=== PATIENT | male | born 1930 | race Hispanic/Latino ===

== ENCOUNTER 2021-05-29 11:37 | Inpatient (IN) | payer MEDICARE ==
[~2021-05-29] VITALS: Ht 162.6 cm; Wt 60.3 kg
[2021-05-29] MEDS ORDERED: SODIUM CHLORIDE 0.9% 1000ML 1,000 ML IV STA ×2 (12:05→13:46)
[2021-05-29] MEDS ORDERED: CALCIUM GLUCONATE 10% INJ 4.65 MEQ in SODIUM CHLORIDE 0.9% 50ML 50 ML IV ONE (12:15)
[2021-05-29] MEDS ORDERED: PIPERACILLIN/TAZOBACTAM 3.375 GM in SODIUM CHLORIDE 0.9% 50ML 50 ML IV SCH (12:30)
[2021-05-29 13:05] LABS: BASOPHILS % 0.1 % (0.0-1.0); EOSINOPHILS % 0.1 % (0.0-6.0); HEMATOCRIT 54.5 % (38.2-49.6); HEMOGLOBIN 18.9 g/dL (14.0-18.0); LYMPHOCYTES # (AUTO) 1.9 (1.0-3.2); LYMPHOCYTES % 13.1 % (18.0-39.1); MEAN CORPUSCULAR HEMOGLOBIN 32.6 pg (28-32); MEAN CORPUSCULAR HGB CONC 34.7 g/dL (31-35); MEAN CORPUSCULAR VOLUME 94.1 fL (81-99); MONOCYTES # (AUTO) 0.6 (0.2-0.8); MONOCYTES % 4.4 % (4.4-11.3); NEUTROPHILS # (AUTO) 11.7 (2.1-6.9); NEUTROPHILS % 81.5 % (38.7-80.0); PLATELET COUNT 201 x10e3/uL (140-360); RED BLOOD COUNT 5.79 x10e6/uL (4.3-5.7); RED CELL DISTRIBUTION WIDTH 13.4 % (11.7-14.4)
[2021-05-29 13:53] LABS: ALBUMIN 4.2 g/dL (3.5-5.0); ALBUMIN/GLOBULIN RATIO 1.1 (0.8-2.0); ANION GAP 27.4 mmol/L (8-16); CALCIUM 10.1 mg/dL (8.4-10.2); CREATININE, SERUM 2.42 mg/dL (0.72-1.25); POTASSIUM 4.4 mmol/L (3.5-5.1)
[2021-05-29] MEDS ORDERED: SODIUM CHLORIDE 0.9% 1000ML 1,000 ML IV SCH (14:00)
[2021-05-29 14:02] LABS: B-TYPE NATRIURETIC PEPTIDE2 72.6 pg/mL (0-100)
[2021-05-29] MEDS ORDERED: ASPIRIN 81 MG CHEW TAB PO ONE (14:45)
[2021-05-29] MEDS: SODIUM CHLORIDE 0.9% 1000ML 1,000 ML IV SCH ×2 (15:02→22:45)
[2021-05-29 15:10] LABS: CLARITY,URINE CLEAR (CLEAR); COLOR,URINE YELLOW (YELLOW)
[2021-05-29 15:12] LABS: LEUKOCYTE ESTERASE ,URINE NEGATIVE (NEGATIVE); NITRITE,URINE NEGATIVE (NEGATIVE); PROTEIN,URINE DIPSTICK 1+ (NEGATIVE)
[2021-05-29 15:13] LABS: KETONES,URINE 1+ (NEGATIVE); URINE UROBILINOGEN 0.2 mg/dL (0.2 - 1)
[2021-05-29 15:23] LABS: EPITHELIAL CELLS,URINE FEW /LPF
[2021-05-29] MEDS ORDERED: SODIUM CHLORIDE 0.9% 1000ML 1,000 ML IV ONE (15:45)
[2021-05-29 15:55] LABS: CREATINE KINASE MB 2.9 ng/mL (0-5.0)
[2021-05-29 16:16] VITALS: BP 151/67
[2021-05-29 16:31] VITALS: BP 151/67
[2021-05-29 20:00] VITALS: BP 144/74
[2021-05-29 21:00] VITALS: BP 144/74
[2021-05-29] MEDS: PIPERACILLIN/TAZOBACTAM 2.25 GM in SODIUM CHLORIDE 0.9% 50ML 50 ML IV SCH (21:28)
[2021-05-30] VITALS (7 sets, daily range): BP systolic 140–146; BP diastolic 62–68
[2021-05-30 05:50] LABS: BASOPHILS % 0.1 % (0.0-1.0); EOSINOPHILS # (AUTO) 0.1 (0.0-0.4); EOSINOPHILS % 0.4 % (0.0-6.0); HEMATOCRIT 49.5 % (38.2-49.6); HEMOGLOBIN 16.8 g/dL (14.0-18.0); LYMPHOCYTES % 7.9 % (18.0-39.1); MEAN CORPUSCULAR HEMOGLOBIN 32.2 pg (28-32); MEAN CORPUSCULAR HGB CONC 33.9 g/dL (31-35); MONOCYTES # (AUTO) 1.2 (0.2-0.8); MONOCYTES % 9.2 % (4.4-11.3); NEUTROPHILS # (AUTO) 10.5 (2.1-6.9); NEUTROPHILS % 81.9 % (38.7-80.0); PLATELET COUNT 129 x10e3/uL (140-360); RED BLOOD COUNT 5.21 x10e6/uL (4.3-5.7); RED CELL DISTRIBUTION WIDTH 13.2 % (11.7-14.4)
[2021-05-30] MEDS: PIPERACILLIN/TAZOBACTAM 2.25 GM in SODIUM CHLORIDE 0.9% 50ML 50 ML IV SCH ×3 (05:53→22:29)
[2021-05-30 06:17] LABS: ALBUMIN/GLOBULIN RATIO 1.1 (0.8-2.0); ANION GAP 15.2 mmol/L (8-16); CALCIUM 8.6 mg/dL (8.4-10.2); CREATININE, SERUM 1.48 mg/dL (0.72-1.25); POTASSIUM 4.2 mmol/L (3.5-5.1)
[2021-05-30 06:24] LABS: ALBUMIN 3.1 g/dL (3.5-5.0)
[2021-05-30] MEDS ORDERED: ONDANSETRON HCL INJ 2MG/ML 2ML 2 MG/ML VIAL IV PRN (08:15)
[2021-05-30] MEDS ORDERED: ZOLPIDEM TARTRATE 5 MG TAB PO PRN (08:15)
[2021-05-30] MEDS ORDERED: DOCUSATE SODIUM 100 MG CAP PO PRN (08:15)
[2021-05-30] MEDS: ACETAMINOPHEN 325 MG TAB PO PRN (10:55)
[2021-05-30] MEDS ORDERED: NIACIN500 M2 PO (11:17)
[2021-05-30] MEDS ORDERED: SIMVASTATIN40 MG PO (11:17)
[2021-05-30] MEDS ORDERED: FISH OIL 1,0001 EAC2 PO (11:17)
[2021-05-30] MEDS ORDERED: GLIPIZIDE5 MG PO (11:17)
[2021-05-30] MEDS ORDERED: CLOPIDOGREL75 MG PO (11:17)
[2021-05-30] MEDS ORDERED: ASPIRIN81 MG PO (11:17)
[2021-05-30] MEDS ORDERED: ISOSORBIDE MONO20 MG PO (11:17)
[2021-05-30] MEDS: SODIUM CHLORIDE 0.9% 1000ML 1,000 ML IV SCH ×2 (13:53→22:26)
[2021-05-30 15:19] LABS: CREATINE KINASE MB 8.4 ng/mL (0-5.0)
[2021-05-30] MEDS ORDERED: DIATRIZOATE MEGL/DIATRIZOA SOD 30 ML BTL PO ONE (16:10)
[2021-05-30] MEDS: SIMVASTATIN 40 MG TAB PO SCH (22:25)
[2021-05-31] VITALS (8 sets, daily range): BP systolic 122–140; BP diastolic 53–71
[2021-05-31] MEDS: ENOXAPARIN SOD INJ 60 MG/0.6 ML SYR SC SCH ×3 (01:45→21:49)
[2021-05-31] MEDS: PIPERACILLIN/TAZOBACTAM 2.25 GM in SODIUM CHLORIDE 0.9% 50ML 50 ML IV SCH ×3 (06:08→21:49)
[2021-05-31] MEDS: SODIUM CHLORIDE 0.9% 1000ML 1,000 ML IV SCH ×4 (06:08→22:05)
[2021-05-31] MEDS: MULTIVITAMINS/MINERALS TAB PO SCH (09:00)
[2021-05-31] MEDS: ASPIRIN 81 MG CHEW TAB PO SCH (09:53)
[2021-05-31] MEDS: ISOSORBIDE MONONITRATE 30 MG TAB CR PO SCH (11:05)
[2021-05-31 11:50] LABS: BASOPHILS % 0.3 % (0.0-1.0); EOSINOPHILS % 0.2 % (0.0-6.0); HEMATOCRIT 49.3 % (38.2-49.6); HEMOGLOBIN 16.2 g/dL (14.0-18.0); LYMPHOCYTES # (AUTO) 1.9 (1.0-3.2); LYMPHOCYTES % 15.2 % (18.0-39.1); MEAN CORPUSCULAR HEMOGLOBIN 32.5 pg (28-32); MEAN CORPUSCULAR HGB CONC 32.9 g/dL (31-35); MONOCYTES # (AUTO) 1.1 (0.2-0.8); MONOCYTES % 8.8 % (4.4-11.3); NEUTROPHILS # (AUTO) 9.3 (2.1-6.9); NEUTROPHILS % 74.9 % (38.7-80.0); PLATELET COUNT 131 x10e3/uL (140-360); RED BLOOD COUNT 4.98 x10e6/uL (4.3-5.7); RED CELL DISTRIBUTION WIDTH 13.8 % (11.7-14.4)
[2021-05-31 11:51] LABS: ANION GAP 18.7 mmol/L (8-16); CALCIUM 8.1 mg/dL (8.4-10.2); CREATININE, SERUM 1.18 mg/dL (0.72-1.25); POTASSIUM 3.7 mmol/L (3.5-5.1)
[2021-05-31] MEDS: SENNOSIDES 8.6 MG TAB PO SCH (12:00)
[2021-05-31] MEDS: DOCUSATE SODIUM LIQD 100 MG/10 ML UDC NG SCH (12:00)
[2021-05-31] MEDS: SIMVASTATIN 40 MG TAB PO SCH (21:49)
[2021-06-01] VITALS (7 sets, daily range): BP systolic 122–143; BP diastolic 60–83
[2021-06-01] MEDS: PIPERACILLIN/TAZOBACTAM 2.25 GM in SODIUM CHLORIDE 0.9% 50ML 50 ML IV SCH ×2 (05:56→13:14)
[2021-06-01] MEDS: SODIUM CHLORIDE 0.9% 1000ML 1,000 ML IV SCH ×2 (06:23→14:45)
[2021-06-01 07:19] LABS: CHOL/HDL RATIO 2.8 (3.9-4.7)
[2021-06-01] MEDS ORDERED: HEPARIN SOD (PORCINE) 1000 UNIT/ML 30ML ONE (07:24)
[2021-06-01] MEDS ORDERED: HEPARIN SOD/SOD CHLORIDE 2,000 ML ONE (07:25)
[2021-06-01] MEDS ORDERED: LIDOCAINE HCL 2% LOCAL 20 ML VIAL ONE (07:25)
[2021-06-01] MEDS ORDERED: IOPAMIDOL 300MG/ML 100 ML INFUS..BTL IV ONE (07:28)
[2021-06-01] MEDS ORDERED: SODIUM CHLORIDE 0.9% 1000ML 1,000 ML ONE (07:30)
[2021-06-01] MEDS ORDERED: FENTANYL CITRATE/PF 100MCG/2 ML INJ ONE (07:33)
[2021-06-01] MEDS ORDERED: MIDAZOLAM HCL 2 MG/2 ML VIAL ONE (07:33)
[2021-06-01] MEDS ORDERED: NITROGLYCERIN/D5W 200 MCG/ML 250 ML ONE (07:55)
[2021-06-01] MEDS: ENOXAPARIN SOD INJ 60 MG/0.6 ML SYR SC SCH (09:00)
[2021-06-01] MEDS: ASPIRIN 81 MG CHEW TAB PO SCH (09:00)
[2021-06-01] MEDS: ISOSORBIDE MONONITRATE 30 MG TAB CR PO SCH (09:59)
[2021-06-01] MEDS: DOCUSATE SODIUM LIQD 100 MG/10 ML UDC NG SCH (09:59)
[2021-06-01] MEDS: SENNOSIDES 8.6 MG TAB PO SCH (10:00)
[2021-06-01] MEDS: MULTIVITAMINS/MINERALS TAB PO SCH (10:00)
[2021-06-01] MEDS ORDERED: HEPARIN 25,000 UNIT 700 UNIT in DEXTROSE 5% 250ML 250 ML IV SCH (14:45)
[2021-06-01] MEDS: HEPARIN 25,000 UNIT 700 UNIT in DEXTROSE 5% 250ML 250 ML IV SCH (15:18)
[2021-06-01] MEDS: CEFTRIAXONE 1 GM in SODIUM CHLORIDE 0.9% 50ML 50 ML IV SCH (17:00)
[2021-06-01] MEDS: SIMVASTATIN 40 MG TAB PO SCH (20:46)
[2021-06-02] VITALS (8 sets, daily range): BP systolic 103–137; BP diastolic 55–62
[2021-06-02] MEDS: DOCUSATE SODIUM LIQD 100 MG/10 ML UDC NG SCH (09:00)
[2021-06-02] MEDS: SODIUM CHLORIDE 0.9% 1000ML 1,000 ML IV SCH ×4 (09:27→23:03)
[2021-06-02] MEDS: ASPIRIN 81 MG CHEW TAB PO SCH (09:27)
[2021-06-02] MEDS: SENNOSIDES 8.6 MG TAB PO SCH (09:28)
[2021-06-02] MEDS: MULTIVITAMINS/MINERALS TAB PO SCH (09:28)
[2021-06-02] MEDS: METOPROLOL SUCCINATE 25 MG TAB XL PO SCH (09:28)
[2021-06-02] MEDS: ISOSORBIDE MONONITRATE 30 MG TAB CR PO SCH (09:28)
[2021-06-02 13:04] LABS: BASOPHILS % 0.1 % (0.0-1.0); EOSINOPHILS # (AUTO) 0.1 (0.0-0.4); HEMATOCRIT 42.7 % (38.2-49.6); HEMOGLOBIN 14.3 g/dL (14.0-18.0); LYMPHOCYTES # (AUTO) 1.5 (1.0-3.2); LYMPHOCYTES % 15.5 % (18.0-39.1); MEAN CORPUSCULAR HEMOGLOBIN 31.8 pg (28-32); MEAN CORPUSCULAR HGB CONC 33.5 g/dL (31-35); MEAN CORPUSCULAR VOLUME 95.1 fL (81-99); MONOCYTES # (AUTO) 0.8 (0.2-0.8); MONOCYTES % 7.7 % (4.4-11.3); NEUTROPHILS # (AUTO) 7.4 (2.1-6.9); NEUTROPHILS % 75.3 % (38.7-80.0); PLATELET COUNT 127 x10e3/uL (140-360); RED BLOOD COUNT 4.49 x10e6/uL (4.3-5.7); RED CELL DISTRIBUTION WIDTH 14.1 % (11.7-14.4)
[2021-06-02 13:12] LABS: ANION GAP 15.4 mmol/L (8-16); CALCIUM 8.2 mg/dL (8.4-10.2); CREATININE, SERUM 1.01 mg/dL (0.72-1.25); POTASSIUM 3.4 mmol/L (3.5-5.1)
[2021-06-02] MEDS: HEPARIN 25,000 UNIT 700 UNIT in DEXTROSE 5% 250ML 250 ML IV SCH (15:00)
[2021-06-02] MEDS: CEFTRIAXONE 1 GM in SODIUM CHLORIDE 0.9% 50ML 50 ML IV SCH (16:52)
[2021-06-02] MEDS: SIMVASTATIN 40 MG TAB PO SCH (21:05)
[2021-06-03] VITALS: BP 131/61
[2021-06-03 04:00] VITALS: BP 128/59
[2021-06-03] MEDS: HEPARIN 25,000 UNIT 700 UNIT in DEXTROSE 5% 250ML 250 ML IV SCH (05:34)
[2021-06-03] MEDS: SODIUM CHLORIDE 0.9% 1000ML 1,000 ML IV SCH ×3 (07:30→21:11)
[2021-06-03 07:58] VITALS: BP 136/66
[2021-06-03] MEDS: DOCUSATE SODIUM LIQD 100 MG/10 ML UDC NG SCH (08:43)
[2021-06-03] MEDS: ASPIRIN 81 MG CHEW TAB PO SCH (08:43)
[2021-06-03] MEDS: MULTIVITAMINS/MINERALS TAB PO SCH (08:43)
[2021-06-03] MEDS: SENNOSIDES 8.6 MG TAB PO SCH (08:43)
[2021-06-03] MEDS: ISOSORBIDE MONONITRATE 30 MG TAB CR PO SCH (08:43)
[2021-06-03] MEDS: METOPROLOL SUCCINATE 25 MG TAB XL PO SCH (08:44)
[2021-06-03 12:06] VITALS: BP 113/51
[2021-06-03 16:08] VITALS: BP 125/60
[2021-06-03] MEDS: CEFTRIAXONE 1 GM in SODIUM CHLORIDE 0.9% 50ML 50 ML IV SCH (16:54)
[2021-06-03 20:00] VITALS: BP 114/53
[2021-06-03] MEDS: SIMVASTATIN 40 MG TAB PO SCH (21:11)
[2021-06-04] VITALS (8 sets, daily range): BP systolic 121–155; BP diastolic 41–91
[2021-06-04 06:26] LABS: BASOPHILS % 0.2 % (0.0-1.0); EOSINOPHILS # (AUTO) 0.1 (0.0-0.4); EOSINOPHILS % 1.2 % (0.0-6.0); HEMATOCRIT 33.9 % (38.2-49.6); HEMOGLOBIN 11.7 g/dL (14.0-18.0); LYMPHOCYTES # (AUTO) 1.2 (1.0-3.2); LYMPHOCYTES % 11.7 % (18.0-39.1); MEAN CORPUSCULAR HEMOGLOBIN 32.1 pg (28-32); MEAN CORPUSCULAR HGB CONC 34.5 g/dL (31-35); MEAN CORPUSCULAR VOLUME 92.9 fL (81-99); MONOCYTES # (AUTO) 0.7 (0.2-0.8); MONOCYTES % 6.8 % (4.4-11.3); NEUTROPHILS # (AUTO) 8.2 (2.1-6.9); NEUTROPHILS % 79.7 % (38.7-80.0); PLATELET COUNT 113 x10e3/uL (140-360); RED BLOOD COUNT 3.65 x10e6/uL (4.3-5.7); RED CELL DISTRIBUTION WIDTH 13.9 % (11.7-14.4)
[2021-06-04 06:34] LABS: ANION GAP 10.8 mmol/L (8-16); CALCIUM 7.4 mg/dL (8.4-10.2); CREATININE, SERUM 0.82 mg/dL (0.72-1.25)
[2021-06-04 06:44] LABS: POTASSIUM 2.8 mmol/L (3.5-5.1)
[2021-06-04] MEDS: SODIUM CHLORIDE 0.9% 1000ML 1,000 ML IV SCH ×3 (06:48→22:45)
[2021-06-04] MEDS ORDERED: POTASSIUM CHLORIDE 10MEQ EA PO ONE (07:30)
[2021-06-04] MEDS: ASPIRIN 81 MG CHEW TAB PO SCH (08:15)
[2021-06-04] MEDS: MULTIVITAMINS/MINERALS TAB PO SCH (08:16)
[2021-06-04] MEDS: SENNOSIDES 8.6 MG TAB PO SCH (08:16)
[2021-06-04] MEDS: ISOSORBIDE MONONITRATE 30 MG TAB CR PO SCH (09:00)
[2021-06-04] MEDS: METOPROLOL SUCCINATE 25 MG TAB XL PO SCH (09:00)
[2021-06-04] MEDS: DOCUSATE SODIUM LIQD 100 MG/10 ML UDC NG SCH (09:36)
[2021-06-04] MEDS: HEPARIN 25,000 UNIT 700 UNIT in DEXTROSE 5% 250ML 250 ML IV SCH (15:08)
[2021-06-04] MEDS: CEFTRIAXONE 1 GM in SODIUM CHLORIDE 0.9% 50ML 50 ML IV SCH (17:00)
[2021-06-04] MEDS: SIMVASTATIN 40 MG TAB PO SCH (21:29)
[2021-06-05] VITALS (9 sets, daily range): BP systolic 112–126; BP diastolic 55–87
[2021-06-05] MEDS: SODIUM CHLORIDE 0.9% 1000ML 1,000 ML IV SCH ×3 (03:10→20:16)
[2021-06-05] MEDS: ASPIRIN 81 MG CHEW TAB PO SCH (08:11)
[2021-06-05] MEDS: MULTIVITAMINS/MINERALS TAB PO SCH (08:11)
[2021-06-05] MEDS: DOCUSATE SODIUM LIQD 100 MG/10 ML UDC NG SCH (08:11)
[2021-06-05] MEDS: ISOSORBIDE MONONITRATE 30 MG TAB CR PO SCH (08:11)
[2021-06-05] MEDS: SENNOSIDES 8.6 MG TAB PO SCH (08:11)
[2021-06-05] MEDS: METOPROLOL SUCCINATE 25 MG TAB XL PO SCH (08:11)
[2021-06-05 10:09] LABS: ANION GAP 12.2 mmol/L (8-16); CALCIUM 7.4 mg/dL (8.4-10.2); CREATININE, SERUM 0.82 mg/dL (0.72-1.25); POTASSIUM 3.2 mmol/L (3.5-5.1)
[2021-06-05] MEDS ORDERED: ONDANSETRON HCL 4 MG ORAL DISINTEGRATING TAB PO PRN (11:15)
[2021-06-05] MEDS ORDERED: POTASSIUM CHLORIDE 20 MEQ TAB CR PO ONE (11:25)
[2021-06-05] MEDS: HEPARIN 25,000 UNIT 700 UNIT in DEXTROSE 5% 250ML 250 ML IV SCH (15:00)
[2021-06-05] MEDS: CEFTRIAXONE 1 GM in SODIUM CHLORIDE 0.9% 50ML 50 ML IV SCH (16:03)
[2021-06-05] MEDS: SIMVASTATIN 40 MG TAB PO SCH (20:16)
[2021-06-06] MEDS: SODIUM CHLORIDE 0.9% 1000ML 1,000 ML IV SCH ×3 (04:55→20:02)
[2021-06-06 05:28] VITALS: BP 110/80
[2021-06-06 07:49] VITALS: BP 128/71
[2021-06-06 07:57] VITALS: BP 128/71
[2021-06-06] MEDS: ASPIRIN 81 MG CHEW TAB PO SCH (08:04)
[2021-06-06] MEDS: DOCUSATE SODIUM LIQD 100 MG/10 ML UDC NG SCH (08:04)
[2021-06-06] MEDS: METOPROLOL SUCCINATE 25 MG TAB XL PO SCH (08:05)
[2021-06-06] MEDS: ISOSORBIDE MONONITRATE 30 MG TAB CR PO SCH (08:05)
[2021-06-06] MEDS: SENNOSIDES 8.6 MG TAB PO SCH (08:05)
[2021-06-06] MEDS: MULTIVITAMINS/MINERALS TAB PO SCH (08:05)
[2021-06-06 11:57] VITALS: BP 111/81
[2021-06-06] MEDS: ACETAMINOPHEN 325 MG TAB PO PRN (13:00)
[2021-06-06] MEDS: HEPARIN 25,000 UNIT 700 UNIT in DEXTROSE 5% 250ML 250 ML IV SCH (15:00)
[2021-06-06 15:58] VITALS: BP 122/68
[2021-06-06] MEDS: CEFTRIAXONE 1 GM in SODIUM CHLORIDE 0.9% 50ML 50 ML IV SCH (16:10)
[2021-06-06 20:00] VITALS: BP 129/77
[2021-06-06] MEDS: SIMVASTATIN 40 MG TAB PO SCH (20:02)
[2021-06-07] VITALS (9 sets, daily range): BP systolic 118–129; BP diastolic 64–77
[2021-06-07] MEDS ORDERED: HEPARIN 25,000 UNIT DRIP IV ONE ×3 (02:47→03:29)
[2021-06-07] MEDS: HEPARIN 25,000 UNIT 700 UNIT in DEXTROSE 5% 250ML 250 ML IV SCH ×2 (03:30→15:00)
[2021-06-07] MEDS: SODIUM CHLORIDE 0.9% 1000ML 1,000 ML IV SCH ×3 (04:38→22:58)
[2021-06-07] MEDS: SENNOSIDES 8.6 MG TAB PO SCH (08:53)
[2021-06-07] MEDS: MULTIVITAMINS/MINERALS TAB PO SCH (08:53)
[2021-06-07] MEDS: DOCUSATE SODIUM LIQD 100 MG/10 ML UDC NG SCH (08:53)
[2021-06-07] MEDS: ASPIRIN 81 MG CHEW TAB PO SCH (08:53)
[2021-06-07] MEDS: METOPROLOL SUCCINATE 25 MG TAB XL PO SCH (08:54)
[2021-06-07] MEDS: ISOSORBIDE MONONITRATE 30 MG TAB CR PO SCH (08:54)
[2021-06-07] MEDS: CEFTRIAXONE 1 GM in SODIUM CHLORIDE 0.9% 50ML 50 ML IV SCH (17:17)
[2021-06-07] MEDS: SIMVASTATIN 40 MG TAB PO SCH (20:52)
[2021-06-08 00:41] VITALS: BP 125/66
[2021-06-08 05:17] VITALS: BP 140/73
[2021-06-08 07:28] LABS: HEMATOCRIT 29.5 % (38.2-49.6); HEMOGLOBIN 10.1 g/dL (14.0-18.0)
[2021-06-08 07:56] VITALS: BP 125/72
[2021-06-08 08:18] VITALS: BP 125/72
[2021-06-08] MEDS: SENNOSIDES 8.6 MG TAB PO SCH (09:00)
[2021-06-08] MEDS: DOCUSATE SODIUM LIQD 100 MG/10 ML UDC NG SCH (09:00)
[2021-06-08] MEDS: METOPROLOL SUCCINATE 25 MG TAB XL PO SCH (09:18)
[2021-06-08] MEDS: MULTIVITAMINS/MINERALS TAB PO SCH (09:18)
[2021-06-08] MEDS: ASPIRIN 81 MG CHEW TAB PO SCH (09:18)
[2021-06-08] MEDS: ISOSORBIDE MONONITRATE 30 MG TAB CR PO SCH (09:18)
[2021-06-08 11:56] VITALS: BP 111/77
[2021-06-08] MEDS: SODIUM CHLORIDE 0.9% 1000ML 1,000 ML IV SCH (15:00)
[2021-06-08 16:00] VITALS: BP 93/79
[2021-06-08] MEDS ORDERED: TOPROL XL25 MG PO (17:23)
[2021-06-08] MEDS: CEFTRIAXONE 1 GM in SODIUM CHLORIDE 0.9% 50ML 50 ML IV SCH (17:32)
[2021-06-08] MEDS ORDERED: FUROSEMIDE INJ 10 MG/ML 2 ML VIAL IV ONE (17:45)
[2021-06-08] MEDS ORDERED: POTASSIUM CHLORIDE 20 MEQ TAB CR PO ONE (17:45)
[2021-06-08 18:36] LABS: ANION GAP 16.2 mmol/L (8-16); CREATININE, SERUM 0.94 mg/dL (0.72-1.25); POTASSIUM 3.2 mmol/L (3.5-5.1)
== END 2021-06-08 18:40 | disposition home or self-care (01) | DRG 871 ==
LOC: ER 12:36 → ERHOLD 14:54 → MED/SURG3 16:17
PROVIDERS: ADMIT Internal Medicine; ATTEND Internal Medicine
PROC: 4A023N7 Measurement of Cardiac Sampling and Pressure, Left Heart, Percutaneous Approach (ICD-10-PCS; principal; 2021-05-29)
PROC: B2111ZZ Fluoroscopy of Multiple Coronary Arteries using Low Osmolar Contrast (ICD-10-PCS; 2021-05-29)
PROC: B2151ZZ Fluoroscopy of Left Heart using Low Osmolar Contrast (ICD-10-PCS; 2021-05-29)
PROC: B2121ZZ Fluoroscopy of Single Coronary Artery Bypass Graft using Low Osmolar Contrast (ICD-10-PCS; 2021-05-29)
PROC: B41D1ZZ Fluoroscopy of Aorta and Bilateral Lower Extremity Arteries using Low Osmolar Contrast (ICD-10-PCS; 2021-05-29)
DX: A41.9 Sepsis, unspecified organism (principal); N17.0 Acute kidney failure with tubular necrosis; I74.3 Embolism and thrombosis of arteries of the lower extremities; N17.9 Acute kidney failure, unspecified; E44.0 Moderate protein-calorie malnutrition; I13.0 Hypertensive heart and chronic kidney disease with heart failure and stage 1 through stage 4 chronic kidney disease, or unspecified chronic kidney disease; I50.22 Chronic systolic (congestive) heart failure; E87.0 Hyperosmolality and hypernatremia; I25.10 Atherosclerotic heart disease of native coronary artery without angina pectoris; Z95.1 Presence of aortocoronary bypass graft; Z89.432 Acquired absence of left foot; F03.90 Unspecified dementia, unspecified severity, without behavioral disturbance, psychotic disturbance, mood disturbance, and anxiety; E11.22 Type 2 diabetes mellitus with diabetic chronic kidney disease; Z79.899 Other long term (current) drug therapy; R62.7 Adult failure to thrive; Z68.22 Body mass index [BMI] 22.0-22.9, adult; E86.0 Dehydration; N18.30 Chronic kidney disease, stage 3 unspecified
CPT/HCPCS: 36247; 36415; 71045; 74176; 75625; 75710; 76937; 80048; 80053; 80061; 81001; 82550; 82553; 82948; 83605; 83690; 83735; 83880; 84132; 84134; 84443; 84484; 85014; 85018; 85025; 85730; 87040; 93005; 93306; 93455; 93925; 96361; 97139; 99152; 99153; 99251; 99284; J0610; J0696; J1644; J1650; J1940; J2001; J2250; J2543; J3010; J7030; Q9967; U0002